=== PATIENT | male | born 1965 | race Two or more races ===

== ENCOUNTER → 2020-06-26 08:00 | Outpatient (CLI) | payer OTHER ==
[~2020-06-26 08:00] MED LIST: COLACE100 MG PO; DOXEPIN PO; HYDROCHLOROTHIA25 MG PO; RESTORIL30 M1 PO; ULTRACET PO; XANAX1 MG PO; ZESTRIL40 M1 PO
== END | disposition home or self-care (01) ==
LOC: RAD 08:00 → LAB 08:00 → ADM 10:30 → EDSTATUS 07-03 10:30 → CIR.AMB 07-03 10:30
PROVIDERS: ATTEND Surgery
DX: U07.1 COVID-19 (principal); K62.89 Other specified diseases of anus and rectum; K60.1 Chronic anal fissure; K62.5 Hemorrhage of anus and rectum; K64.1 Second degree hemorrhoids; Z01.810 Encounter for preprocedural cardiovascular examination

== ENCOUNTER 2020-08-21 05:35 | Day surgery (SDC) | payer OTHER ==
[~2020-08-21 05:35] MED LIST changes: +SIMVAST PO
[2020-08-21] MEDS ORDERED: PERCOCET 5-3251 EACH PO (10:00)
[2020-08-21] MEDS ORDERED: COLACE100 MG PO (10:00)
== END 2020-08-21 13:30 | disposition home or self-care (01) ==
LOC: CIR.AMB 05:35
PROVIDERS: ATTEND Surgery
DX: K64.8 Other hemorrhoids (principal)